=== PATIENT | male | born 1970 | race Caucasian/White ===

== ENCOUNTER 2025-01-24 14:36 | Outpatient (REF) | payer OTHER, SELFPAY ==
--- OUTSIDE RECORDS SUMMARY | 2025-01-21 08:00 | XMS_ITS | Encounter Summary ---
Author Organization Formerly [facility] Address [address] [place] [id number] Care Team Providers Care Burglary Investigator Name Role Phone FeliciaMichelle NP Primary Care Provider [phone] Reason for Visit * Reason Comments Nasal Congestion Encounter Details Date Type Department Care Team ([facility] st Contact Info) Description 01/21/2025 8:00 AM EDT Office Visit [facility] [address] [phone] Jhonny Wright MD [address] [place] [id number] Chronic throat clearing (Primary Dx); Chronic pansinusitis; Deviated nasal septum; Gastroesophageal reflux disease without esophagitis Social History Tobacco Use Types Packs/Day Years Used Date Smoking Tobacco: Never Passive Smoke Exposure: Never Smokeless Tobacco: Never Sex and Gender Information Value Date Recorded Sex Assigned at Not on file Legal Sex Male 12:38 PM EDT Gender Identity Not on file Sexual Orientation Not on file documented as of this encounter Last Filed Vital Signs Vital Sign Reading Time Taken Comments Blood Pressure - - Pulse - - Temperature - - Respiratory Rate - - Oxygen Saturation - - Inhaled Oxygen Concentration - - Weight 104 kg (230 lb) 01/21/2025 8:56 AM EDT Height 177.8 cm (5' 10 ) 01/21/2025 8:56 AM EDT Body Mass Index 33 01/21/2025 8:56 AM EDT documented in this encounter Progress Notes * Jhonny Wright MD - 01/21/2025 8:00 AM EDT Images from the original note were not included. [address] [facility] [place] [address] Loc: [phone] Encounter Date: 01/21/2025 Chief Complaint Patient presents with Nasal Congestion 1. Chronic pansinusitis 2. Deviated nasal septum 3. Chronic throat clearing 4. Gastroesophageal reflux disease without esophagitis - famotidine (PEPCID) 40 MG tablet; Take 1 tablet (40 mg total) by mouth nightly. Dispense: 30 tablet; Refill: 3 ASSESSMENT AND PLAN David Cosme is a 54-year-old male with a history of sarcoidosis, currently on methotrexate and folic acid. He presents with chronic sinusitis, postnasal drip, and intermittent dizziness, specifically most bothered by need to chronically clear his throat. 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 Examination reveals a deviated nasal septum, nonspecific mild irritation of the throat, but no signs of obstruction or significant structural abnormalities. Throat findings highly suggestive of laryngopharyngeal reflux. - Increase famotidine to 40 mg daily at night for 1-2 months - Implement laryngeal hygiene strategies, including avoiding throat clearing and substituting with swallowing liquids - Schedule follow-up audiogram to evaluate dizziness and vertigo - Follow-up appointment in 1-2 months to reassess symptoms and effectiveness of treatment HISTORY OF PRESENT ILLNESS David Cosme reports chronic sinusitis, postnasal drip, throat clearing, and intermittent dizziness. He has been experiencing these symptoms for several years, which worsened after a bout of bronchitis following COVID-19. He sometimes takes Benadryl as needed for symptoms. He has had multiple sinus infections, typically 1-3 times per year, and notes more pronounced symptoms on the left side. He is currently on methotrexate for sarcoidosis and occasionally takes famotidine and omeprazole for reflux symptoms. PHYSICAL EXAM The patient was in no acute distress and breathing comfortably on exam. 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 No significant findings in the sinuses. CTA of the chest and echo are unremarkable. Neurosarcoid exacerbation ruled out with negative labs. PROCEDURES Procedure: Diagnostic Nasal Endoscopy Indication: Ongoing sinonasal symptoms not improving with medical strategies and inability to fullyevaluate with anterior nasal exam Description: In order to evaluate the area of concern, and in the context of the patient's symptomsnot fully accounted for by anterior rhinoscopy, a nasal endoscopy was discussed with the patient. Following consent for the procedure, topical 50:50 4% lidocaine/oxymetazoline solution was used as a topical anesthesic and decongestant. After adequate time for this to take effect, an endoscope was used to evaluate the nasal passages, inferior/middle/superior meati, sphenoethmoid recess, nasopharynx, and sinus openings. Please see findings below for details. The endoscope was then removed and thepatient was observed without bleeding and with good respirations. The patient tolerated the procedure was and was discharged home in good condition. Findings: Nasal mucosa: Mild mucosal inflammation. No lesions. Clear nasal secretions throughout Nasal septum: moderate deviated to the right Right nasal turbinate: moderately enlarged Right inferior meatus: No significant inflammation or mucosal lesions Right middle meatus: clear, no significant edema, polyps, or mucopurulence Right superior meatus: clear, no significant edema, polyps, or mucopurulence Right sphenoethmoid recess: clear, no significant edema, polyps or mucopurulence Left nasal turbinate: moderately enlarged Left inferior meatus: No significant inflammation or mucosal lesions Left middle meatus: clear, no significant edema, polyps, or mucopurulence Left superior meatus: clear, no significant edema, polyps, or mucopurulence Left sphenoethmoid recess: clear, no significant edema, polyps or mucopurulence Nasopharynx: visualized without mass or mucosal lesions. Eustachian tubes appear patent. Project Consultant Images: Deviated septum to the right Sinus openings Jhonny Wright 01/21/2025 PAST MEDICAL HISTORY Past Medical History: Diagnosis Date Cancer (HCC) GERD (gastroesophageal reflux disease) Hypertension Lung disease Seizures (HCC) Sinusitis, chronic Past Surgical History: Procedure Laterality Date ORTHOPEDIC SURGERY OR OPEN REPAIR OF ROTATOR CUFF CHRONIC Rotator Cuff Repair: 2013-10-16 09:19:18 History reviewed. No pertinent family history. Social History[1] MEDICATIONS Current Medications[2] ALLERGIES Allergies[3] VISIT ORDERS 1. Chronic pansinusitis 2. Deviated nasal septum 3. Chronic throat clearing 4. Gastroesophageal reflux disease without esophagitis - famotidine (PEPCID) 40 MG tablet; Take 1 tablet (40 mg total) by mouth nightly. Dispense: 30 tablet; Refill: 3 Jhonny Wright MD [1] Social History Tobacco Use Smoking status: Never Passive exposure: Never Smokeless tobacco: Never [2] Current Outpatient Medications: losartan (COZAAR) 25 MG tablet, Take 1.5 tablets by mouth., Disp: , Rfl: methoTREXate (RHEUMATREX) 2.5 mg tablet, Take 15 mg by mouth, Disp: , Rfl: famotidine (PEPCID) 40 MG tablet, Take 1 tablet (40 mg total) by mouth nightly., Disp: 30 tablet, Rfl: 3 [3] Allergies Allergen Reactions Mesalamine Other (See Comments), Benign arrhythmia, Delirium/Confusion/Psychosis, Palpitations and Shortness Of Breath documented in this encounter Plan of Treatment Upcoming Encounters Date Type Department Care Team (Late st Contact Info) Description 03/27/2025 10:00 AM EDT Clinical Support [facility] [address] [phone] Lizeth Patel Au.D [address] [place] [address] 03/27/2025 10:45 AM EDT Office Visit [facility] [address] [phone] Jhonny Wright MD [address] [place] [address] documented as of this encounter Visit Diagnoses Diagnosis Chronic throat clearing- Primary Chronic pansinusitis Other chronic sinusitis Deviated nasal septum Gastroesophageal reflux disease without esophagitis Esophageal reflux documented in this encounter Care Teams Burglary Investigator Relationship Specialty Start Date End Date Felicia, Michelle, BRICKLAYER SUPERVISOR [address] [place] [address] PCP - General Family Medicine 01/21/25 documented as of this encounter
--- NOTE | 2025-01-24 14:40 | EMG_ITS ---
Chief complaint: Patient has had at least 6 episodes of COVID infection. Had recent bronchitis episode prior to symptoms. History of pulmonary and neuro sarcoidosis. In September 2024, started noticing sporadic weakness on both forearms and both lower legs. He had a brief episode of diplopia as well. Has noted some tremoring on both hands but denies fasciculations. Denies atrophy. Exam shows good strength 5/5 upper and lower extremities. Reflexes are brisk and symmetric upper and lower. No atrophy. No fasciculations served. Reason for referral: Evaluate for motor neuron disease Referred by: Michelle Durate Procedure done: Upper and lower extremities NCS/EMG Precautions and/or limitations: None The limb temperature was monitored continuously and remained between 32-36 degrees C during the performance of the NCS. Nerve Conduction Studies Anti Sensory Summary Table ?Stim Site NR Onset (ms) Norm Onset (ms) Peak (ms) Norm Peak (ms) O-P Amp (?V) Norm O-P Amp Site1 Site2 Delta-0 (ms) Dist (cm) Guilherme (m/s) Norm Guilherme (m/s) Right Median Anti Sensory (2nd Digit) Wrist ? 2.9 3.8 <3.6 22.3 >10 Wrist 2nd Digit 2.9 14.0 48 Right Radial Anti Sensory (Thumb) Forearm ? 0.9 3.1 <3.1 54.3 Forearm Thumb 0.9 0.0 Left Sural Anti Sensory (Lat Mall) Calf ? 2.8 3.3 <4.0 5.7 >5.0 Calf Lat Mall 2.8 14.0 50 Right Sural Anti Sensory (Lat Mall) Calf ? 2.6 3.3 <4.0 6.7 >5.0 Calf Lat Mall 2.6 14.0 54 Right Ulnar Anti Sensory (5th Digit) Wrist ? 2.3 2.9 <3.7 22.1 >15.0 Wrist 5th Digit 2.3 14.0 61 Motor Summary Table ?Stim Site NR Onset (ms) Norm Onset (ms) O-P Amp (mV) Norm O-P Amp iAmp (mV) Amp (1st) (%) Site1 Site2 Delta-0 (ms) Dist (cm) Guilherme (m/s) Norm Guilherme (m/s) Right Median Motor (Abd Poll Brev) Wrist ? 3.6 <3.9 11.8 >4.5 14.2 100.0 Elbow Wrist 3.7 21.0 57 >45 Elbow ? 7.3 10.6 12.9 89.8 Right Peroneal Motor (Ext Dig Brev) Ankle ? 3.8 <4.0 3.8 >2.5 4.1 100.0 Ankle Ext Dig Brev 3.8 0.0 B Fib ? 10.0 3.6 4.0 94.7 B Fib Ankle 6.2 32.5 52 >40 Poplt ? 11.0 3.5 3.9 92.1 Poplt B Fib 1.0 6.0 60 >40 Left Tibial Motor (Abd Rivera Brev) Ankle ? 3.7 <5 3.2 >2.5 6.8 100.0 Ankle Abd Rivera Brev 3.7 0.0 Knee ? 13.1 1.4 2.2 43.7 Knee Ankle 9.4 42.0 45 >40 Right Tibial Motor (Abd Rivera Brev) Ankle ? 4.2 <5 5.0 >2.5 7.9 100.0 Ankle Abd Rivera Brev 4.2 0.0 Knee ? 13.4 2.8 4.8 56.0 Knee Ankle 9.2 41.0 45 >40 Right Ulnar Motor (Abd Dig Minimi) Wrist ? 2.8 <3.0 9.2 >5 11.5 100.0 B Elbow Wrist 3.5 21.0 60 >45 B Elbow ? 6.3 8.8 11.2 95.7 A Elbow B Elbow 1.0 10.0 100 >45 A Elbow ? 7.3 8.5 11.1 92.4 Comparison Summary Table ?Stim Site NR Peak (ms) Norm Peak (ms) P-T Amp (?V) Site1 Site2 Delta-P (ms) Norm Delta (ms) Right Median/Radial Dig I Comparison (Digit 1 - 10cm) Median ? 3.3 <2.9 940.6 Median Radial 0.7 Radial ? 2.6 <2.8 12.7 EMG ?Side Muscle Nerve Root Ins Act Fibs Psw Amp Dur Poly Recrt Int Pat Comment Right 1stDorInt Ulnar C8-T1 Nml Nml Nml Nml Nml 0 Nml Complete Right FlexCarRad Median C6-7 Nml Nml Nml Nml Nml 0 Nml Complete Right Biceps Musculocut C5-6 Nml Nml Nml Nml Nml 0 Nml Complete Right Triceps Radial C6-7-8 Nml Nml Nml Nml Nml 0 Nml Complete Right Deltoid Axillary C5-6 Nml Nml Nml Nml Nml 0 Nml Complete Right AbdHallucis MedPlantar S1-2 Nml Nml Nml Nml Nml 0 Nml Complete Right AntTibialis Dp Br Peron L4-5 Nml Nml Nml Nml Nml 0 Nml Complete Right PostTibialis Tibial L5, S1 Nml Nml Nml Nml Nml 0 Nml Complete Right MedGastroc Tibial S1-2 Nml Nml Nml Nml Nml 0 Nml Complete Right VastusMed Femoral L2-4 Nml Nml Nml Nml Nml 0 Nml Complete Left AbdHallucis MedPlantar S1-2 Nml Nml Nml Nml Nml 0 Nml Complete Left AntTibialis Dp Br Peron L4-5 Nml Nml Nml Nml Nml 0 Nml Complete Left MedGastroc Tibial S1-2 Nml Nml Nml Nml Nml 0 Nml Complete Left VastusMed Femoral L2-4 Nml Nml Nml Nml Nml 0 Nml Complete Paraspinal EMG ?Side Muscle Nerve Root Ins Act Fibs Psw Comment Right Cervical Upper Rami Nml Nml Nml Right Cervical Mid Rami Nml Nml Nml Right Cervical Lower Rami Nml Nml Nml Right Lumbar Upper Rami Nml Nml Nml Right Lumbar Mid Rami Nml Nml Nml Right Lumbar Lower Rami Nml Nml Nml Left Lumbar Upper Rami Nml Nml Nml Left Lumbar Mid Rami Nml Nml Nml Left Lumbar Lower Rami Nml Nml Nml Right Thoracic Mid Rami Nml Nml Nml FINDINGS: Right median sensory nerve showed prolonged peak latency. Significant interlatency difference between right median and radial sensory nerves. All other nerves tested on right upper extremity, and bilateral lower extremities, were within normal. Concentric needle EMG was performed in selected muscles of the right upper extremity, bilateral lower extremities, cervical, thoracic, and lumbar paraspinals. Study did not reveal signs of electric abnormalities as shown in the table above. No denervation seen on any of the paraspinal muscles tested. No fasciculations seen. No myopathic looking units seen. IMPRESSION: 1. This is mildly abnormal study. 2. There is electrodiagnostic evidence for right mild median neuropathy at the wrist, consistent with Carpal Tunnel Syndrome. 3. There is no electrodiagnostic evidence for ulnar neuropathy, brachial plexopathy, cervical radiculopathy, peroneal neuropathy, tibial neuropathy, lumbosacral plexopathy, lumbar radiculopathy, or peripheral neuropathy. 4. There is no electrodiagnostic evidence for myopathic disorder or motor neuron disease. Thank you for your kind referral. Yessy Rehman MD, USAMA Board Certified, [place] [employer] and [employer] (ABPMR) Board Certified, [place] Board of Electrodiagnostic Medicine (ABEM) CODIN [id number] x [id number] MTDD
== END 2025-01-24 14:37 | disposition home or self-care (01) ==
LOC: HO.NEURO 14:36
PROVIDERS: Visit Provider Nurse Practitioner Family
DX: M62.81 Muscle weakness (generalized) (principal)
CPT/HCPCS: 95869; 95886; 95911

== ENCOUNTER → 2025-01-24 14:40 | Outpatient (BNV) | payer OTHER, SELFPAY | PROVIDERS: Visit Provider Physical Medicine & Rehabilitation | DX: G56.01 Carpal tunnel syndrome, right upper limb (principal); J20.9 Acute bronchitis, unspecified; R53.1 Weakness; H53.2 Diplopia | CPT/HCPCS: 95886; 95887; 95911 ==